=== PATIENT | male | born 1965 | race Caucasian/White ===

== ENCOUNTER → 2017-09-20 | Outpatient (CLI) | payer MEDICARE, MEDICAID ==
[~2017-09-20] MED LIST: ALBU8.5H8 INH; IBUP-1223 PO; NONE PER PT
== END ==
LOC: STAR 10:37
PROVIDERS: ATTEND Colon & Rectal Surgery
DX: Z02.9 Encounter for administrative examinations, unspecified (principal)

== ENCOUNTER 2017-09-27 05:48 | Day surgery (SDC) | payer MEDICARE, MEDICAID ==
[~2017-09-27] VITALS: Ht 167.6 cm; Wt 61.8 kg
[2017-09-27] MEDS ORDERED: LACTATED RINGERS 1,000 ML IV SCH (06:32)
[2017-09-27 06:33] VITALS: BP 107/70
[2017-09-27] MEDS ORDERED: BUPIVACAINE/PF 0.5% ONE (06:36)
[2017-09-27] MEDS ORDERED: EPINEPHRINE 1 MG/ML, 1ML ONE (06:36)
== END 2017-09-27 08:00 | disposition home or self-care (01) ==
LOC: OUT 05:48
PROVIDERS: ATTEND Colon & Rectal Surgery
DX: Z02.9 Encounter for administrative examinations, unspecified (principal)
CPT/HCPCS: J0171; J3490